=== PATIENT | male | born 1965 | race Caucasian/White ===

== ENCOUNTER → 2019-10-09 | Outpatient (CLI) | payer OTHER ==
--- NOTE | 2019-10-09 10:59 | Diagnostic Imaging Report ---
History: Neck pain Comparison studies: None Technique: Sagittal T1, T2 and IR, axial T2 and axial gradient echo Intravenous contrast: None Findings: Alignment: Normal lordosis. No scoliosis. Cervicomedullary junction: No abnormalities. Patent foramen magnum. Soft tissues: No T2 hyperintense inflammatory changes. Spinal cord: Normal in size and signal from the foramen magnum through T4 Anterior and intervertebral fusion at C5-6. Vertebrae: Normal in height and signal intensity. No acute fractures, infection or neoplasm. Mild chronic depression of T3 central superior endplate. Degenerative changes: C2-C3: Patent canal and foramina. C3-C4: Mild right facet hypertrophy with patent canal and foramina. C4-C5: Mild disc degeneration with loss of T2 signal. Patent canal and foramina. C5-C6: Intervertebral and anterior fusion. Patent canal and foramina. C6-C7: Left uncinate process hypertrophy and facet hypertrophy results in mild left foraminal narrowing with patent canal and right foramina. C7-T1: Patent canal and foramina. IMPRESSION: 1. Anterior and intervertebral cervical fusion at C5-6, without complication. 2. Mild degenerative changes without significant (moderate or severe) canal stenosis or foraminal narrowing Signed by: DR Ellis Pinzon M.D. on 10/09/2019 10:41 AM
== END ==
LOC: MRI 07:40
PROVIDERS: ATTEND Internal Medicine
DX: M50.30 Other cervical disc degeneration, unspecified cervical region (principal); M54.12 Radiculopathy, cervical region
CPT/HCPCS: 72141